=== PATIENT | male | born 1940 | race Caucasian/White ===

== ENCOUNTER 2019-01-14 14:48 | Emergency (ER) | payer MEDICARE, OTHER ==
[2019-01-14] MEDS ORDERED: Labetalol 20 MG/4 ML Syringe IVPUSH ONE (15:10)
[2019-01-14] MEDS ORDERED: Sodium Chloride 0.9% 10 ML Syringe FLUSH PRN (15:31)
[2019-01-14 15:39] LABS: CHLORIDE,CL 104 mmol/L (98-107); SODIUM,NA 139 mmol/L (136-145)
--- NOTE | 2019-01-14 16:12 | EDM.PDOC ---
ED HPI GENERAL MEDICAL PROBLEM - General Chief Complaint: General Stated Complaint: vulnerable adult Time Seen by Provider: 01/14/19 15:00 Source of Information: Reports: EMS, Police History Limitations: Reports: Altered Mental Status - History of Present Illness INITIAL COMMENTS - FREE TEXT/NARRATIVE: Patient is a 78-year-old who was brought in by the system analyst's department secondary to a call but they found him wandering around [place] patient has been missing and recently was reported as a silver alert he was brought in to be evaluated Onset: Today Duration: Hour(s):, Constant Location: Reports: Generalized Context: Reports: Other (Dementia) Associated Symptoms: Reports: Confusion Treatments EXPLORATION ENGINEER: Reports: EKG - Related Data Allergies Allergy/AdvReac Type Severity Reaction Status Date / Time No Known Allergies Allergy Verified 01/14/19 15:25 Home Meds: Home Meds Aspirin [Halfprin] 81 mg PO DAILY 01/14/19 [History] Carvedilol [Coreg] PO 01/14/19 [History] Lisinopril 40 mg PO DAILY 01/14/19 [History] Simvastatin PO DAILY 01/14/19 [History] hydroCHLOROthiazide [Hydrochlorothiazide] 25 mg PO DAILY 01/14/19 [History] Social & Family History - Tobacco Use Smoking Status *Q: Unknown Ever Smoked Tobacco Use Comment: Patient did have chew tucked into lower lip upon arrival that he spit out. - Recreational Drug Use Recreational Drug Use: No ED ROS GENERAL - Review of Systems Review Of Systems: Unable To Obtain ED EXAM, GENERAL - Physical Exam Exam: See Below Exam Limited By: Altered Mental Status General Appearance: Alert, WD/WN, No Apparent Distress Ears: Normal External Exam, Normal Canal, Hearing Grossly Normal, Normal TMs Ear Exam: Bilateral Ear: Auricle Normal, Canal Normal, TM normal Nose: Normal Inspection, Normal Mucosa, No Blood Throat/Mouth: Normal Inspection, Normal Lips, Normal Teeth, Normal Gums, Normal Oropharynx, Normal Voice, No Airway Compromise Head: Atraumatic, Normocephalic Neck: Normal Inspection, Supple, Non-Tender, Full Range of Motion Respiratory/Chest: No Respiratory Distress, Lungs Clear, Normal Breath Sounds, No Accessory Muscle Use, Chest Non-Tender Cardiovascular: Normal Peripheral Pulses, Regular Rate, Rhythm, No Edema GI/Abdominal: Normal Bowel Sounds, Soft, Non-Tender, No Organomegaly, No Distention, No Abnormal Bruit, No Mass Back Exam: Normal Inspection, Full Range of Motion, NT Extremities: Normal Inspection, Normal Range of Motion, Non-Tender, Normal Capillary Refill, No Pedal Edema Neurological: Alert, CN II-XII Intact Skin Exam: Warm, Dry, Intact, Normal Color, No Rash Lymphatic: No Adenopathy Course - Vital Signs Last Recorded V/S: Last Vital Signs Temp 98.2 F 01/14/19 14:51 Pulse 90 01/14/19 14:51 Resp 18 01/14/19 19:18 BP 136/68 01/14/19 19:18 Pulse Ox 95 01/14/19 19:18 - Orders/Labs/Meds Orders: Active Orders 24 hr Category Date Time Status Peripheral IV Care [RC] . DIRECTED Care 01/14/19 15:31 Active Chest 2V [CR] Stat Exams 01/14/19 15:00 Taken Sodium Chloride 0.9% [Normal Saline] 1,000 ml Med 01/14/19 16:15 Active IV ASDIRECTED Sodium Chloride 0.9% [Saline Flush] Med 01/14/19 15:31 Active 10 ml FLUSH ASDIRECTED PRN Peripheral IV Insertion Adult [OM.PC] Routine Oth 01/14/19 15:31 Ordered Medication Orders Sodium Chloride (Normal Saline) 1,000 mls @ 200 mls/hr IV ASDIRECTED WANDA Last Admin: 01/14/19 16:17 Dose: 200 mls/hr Sodium Chloride (Saline Flush) 10 ml FLUSH ASDIRECTED PRN PRN Reason: Keep Vein Open Last Admin: 01/14/19 15:32 Dose: 10 ml Labs: Laboratory Tests 01/14/19 01/14/19 Range/Units 15:15 15:15 WBC 6.7 (4.0-10.2) K/uL RBC 5.39 (4.33-5.41) M/uL Hgb 18.0 H (13.1-16.8) g/dL Hct 50.2 H (39.0-49.0) % MCV 93.1 (84.0-98.0) fL MCH 33.4 H (28.2-33.3) pg MCHC 35.9 (31.7-36.0) g/dL RDW 14.0 (11.2-14.1) % Plt Count 136 L (150-350) K/uL Neut % (Auto) 76.2 (45.0-80.0) % Lymph % (Auto) 15.1 (10.0-50.0) % Powell % (Auto) 7.5 (2.0-14.0) % Eos % (Auto) 0.9 (0.0-5.0) % Baso % (Auto) 0.3 (0.0-2.0) % Neut # (Auto) 5.08 (1.40-7.00) K/uL Lymph # (Auto) 1.01 (0.50-3.50) K/uL Powell # (Auto) 0.50 (0.00-1.00) K/uL Eos # (Auto) 0.06 (0.00-0.50) K/uL Baso # (Auto) 0.02 (0.00-0.20) K/uL Sodium 139 (136-145) mmol/L Potassium 4.2 (3.5-5.1) mmol/L Chloride 104 (98-107) mmol/L Carbon Dioxide 24.5 (21.0-32.0) mmol/L BUN 15 (7-18) mg/dL Creatinine 0.96 (0.51-1.17) mg/dL Est Cr Clr Drug Dosing 59.38 mL/min Estimated GFR (MDRD) > 60 mL/min Glucose 96 (74-106) mg/dL Calcium 9.8 (8.5-10.1) mg/dL Meds: Medications Generic Name Dose Route Start Last Admin Trade Name Freq PRN Reason Stop Dose Admin Sodium Chloride 1,000 mls @ 200 mls/hr 01/14/19 16:15 01/14/19 16:17 Normal Saline IV 200 mls/hr ASDIRECTED WANDA Administration Sodium Chloride 10 ml 01/14/19 15:31 01/14/19 15:32 Saline Flush FLUSH 10 ml ASDIRECTED PRN Administration Keep Vein Open Discontinued Medications Generic Name Dose Route Start Last Admin Trade Name Freq PRN Reason Stop Dose Admin Labetalol HCl 10 mg 01/14/19 15:10 01/14/19 15:31 Normodyne IVPUSH 01/14/19 15:11 10 mg ONETIME ONE Administration Protocol Departure - Departure Time of Disposition: 22:45 Disposition: Home, Self-Care 01 Condition: Fair Clinical Impression: Dementia - Discharge Information *PRESCRIPTION DRUG MONITORING PROGRAM REVIEWED*: No *COPY OF PRESCRIPTION DRUG MONITORING REPORT IN PATIENT ZANA: No Referrals: PCP,Unobtain [Primary Care Provider] - Forms: ED Department Discharge Care Plan Goals: Patient admitted to the emergency room will hold until family arrives to pick him up - My Orders Last 24 Hours: My Active Orders 01/14/19 15:00 Chest 2V [CR] Stat 01/14/19 15:31 Peripheral IV Care [RC] . DIRECTED Sodium Chloride 0.9% [Saline Flush] 10 ml FLUSH ASDIRECTED PRN Peripheral IV Insertion Adult [OM.PC] Routine 01/14/19 16:15 Sodium Chloride 0.9% [Normal Saline] 1,000 ml IV ASDIRECTED - Assessment/Plan Last 24 Hours: My Active Orders 01/14/19 15:00 Chest 2V [CR] Stat 01/14/19 15:31 Peripheral IV Care [RC] . DIRECTED Sodium Chloride 0.9% [Saline Flush] 10 ml FLUSH ASDIRECTED PRN Peripheral IV Insertion Adult [OM.PC] Routine 01/14/19 16:15 Sodium Chloride 0.9% [Normal Saline] 1,000 ml IV ASDIRECTED
[2019-01-14] MEDS ORDERED: Sodium Chloride 0.9% 1,000 ML IV SCH (16:15)
== END 2019-01-14 23:00 | disposition home or self-care (01) ==
LOC: LL.ED 14:48
DX: F03.90 Unspecified dementia, unspecified severity, without behavioral disturbance, psychotic disturbance, mood disturbance, and anxiety (principal); Z79.899 Other long term (current) drug therapy; Z79.82 Long term (current) use of aspirin
CPT/HCPCS: 36415; 71046; 80048; 85025; 96361; 96374; 99285; J3490; J7030; 99283